=== PATIENT | male | born 1990 | race Caucasian/White ===

== ENCOUNTER 2017-05-14 05:30 | Emergency (ER) ==
[2017-05-14 05:35] VITALS: BP 124/73; TEMP 97.1; BMI 20.2
[2017-05-14] MEDS ORDERED: ZOFRAN ODT PO STA (05:55)
[2017-05-14] MEDS ORDERED: TYLENOL PO STA (05:55)
--- NOTE | 2017-05-14 05:55 | ED.PDOC ---
General ED Provider: Dr. KATELYN PEREZ Chief Complaint: Nausea/Vomiting Stated Complaint: nausea, body aches, headache took motrin but not better. Time Seen by Physician: 05:55 Mode of Arrival: Walk-In Information Source: Patient Primary Care Provider: CANDACE LEAL Nursing and Triage Documentation Reviewed and Agree: Yes GI Complaint Exam - Vomiting/Diarrhea Complaint/Exam Onset/Duration: 1 day Symptoms Are: Still present Episodes of Vomiting over last 24 Hours: 0 Episodes of Diarrhea Over Last 24 Hours: 5 Initial Severity: Moderate Current Severity: Moderate Character of Diarrhea: Reports: Watery Aggravating: Reports: None Alleviating: Reports: None Associated Signs and Symptoms: Denies: Dizziness, Light-headedness, Melena, Hematemesis, Fever, Abdominal pain, Cramping Surgical Obstruction Risk Factors: Reports: None Related Surgical History: Reports: None Abdominal Findings: Present: None Differential Diagnoses: Viral Gastroenteritis Review of Systems - Review Of Systems Constitutional: Reports: No symptoms Eyes: Reports: No symptoms Ears, Nose, Mouth, Throat: Reports: No symptoms Respiratory: Reports: No symptoms Cardiac: Reports: No symptoms GI: Reports: Diarrhea, Nausea. Denies: Vomiting : Reports: No symptoms Musculoskeletal: Reports: No symptoms Skin: Reports: No symptoms Neurological: Reports: Anxiety Endocrine: Reports: No symptoms Hematologic/Lymphatic: Reports: No symptoms All Other Systems: Reviewed and Negative Past Medical History - Past Medical History Previously Healthy: Yes Endocrine: Reports: None Cardiovascular: Reports: None Respiratory: Reports: None Hematological: Reports: None Gastrointestinal: Reports: None Genitourinary: Reports: None Neuro/Psych: Reports: None Musculoskeletal: Reports: None Cancer: Reports: None - Surgical History General Surgical History: Reports: Unknown - Family History Family History: Reports: Unknown - Social History Smoking Status: Current every day smoker, Heavy tobacco smoker Hx Substance Use: No Alcohol Screening: None - Immunizations Tetanus Shot up to Date: No (unknown) Physical Exam - Physical Exam Appearance: Ill-appearing Ill-appearing: Mild Eyes: DARCY, EOMI, Conjunctiva clear Neck: Supple Respiratory: Airway patent Cardiovascular: RRR GI/: Soft, Nontender Musculoskeletal: Normal strength Skin: Warm, Dry Neurological: Sensation intact Psychiatric: Anxious Critical Care Note - Critical Care Note Total Time (mins): 0 Course - Course Orders, Labs, Meds: Lab Review 05/14/17 06:00 Influenza A (Rapid) Negative Influenza B (Rapid) Negative Orders Category Date Time Status MOLECULAR GROUP A STREP Stat LAB 05/14/17 06:00 Completed RAPID FLU A/B Stat LAB 05/14/17 06:00 Completed STREP SCREEN Stat LAB 05/14/17 06:00 Completed Acetaminophen [Tylenol] MEDS 05/14/17 05:55 Discontinued 1,000 mg PO ONCE STA Ondansetron [Zofran Odt] MEDS 05/14/17 05:55 Discontinued 4 mg PO ONCE STA Medications Discontinued Medications Generic Name Dose Route Start Last Admin Trade Name Freq PRN Reason Stop Dose Admin Acetaminophen 1,000 mg 05/14/17 05:55 05/14/17 06:05 Tylenol PO 05/14/17 05:56 1,000 mg ONCE STA Administration Ondansetron HCl 4 mg 05/14/17 05:55 05/14/17 06:06 Zofran Odt PO 05/14/17 05:56 4 mg ONCE STA Administration Vital Signs: Temp Pulse Resp BP Pulse Ox 05/14/17 05:31 97.1 F L 75 20 124/73 98 Departure - Departure Time of Disposition: 06:30 Disposition: HOME SELF-CARE Discharge Problem: Viral syndrome Instructions: Viral Syndrome (ED) Condition: Fair Pt referred to PMD for follow-up: Yes Additional Instructions: Push fluids Take Tylenol Alternating with motrin as needed for fever or pain Follow up with PCP in 3 days Prescriptions: Ondansetron HCl [Zofran Tab] 4 mg PO Q8H PRN #14 tablet PRN Reason: Nausea / Vomiting Allergies/Adverse Reactions: Allergies No Known Allergies Allergy (Verified 05/14/17 05:36) Home Medications: Ambulatory Orders Albuterol Sulfate [Albuterol Sulfate Hfa] 8.5 gm IH BID PRN 05/27/13 Ondansetron HCl [Zofran Tab] 4 mg PO Q8H PRN #14 tablet 05/14/17 Disposition Discussed With: Patient
[2017-05-14 06:18] LABS: FLU INTERNAL QC INTERNAL QC VALID; RAPID FLU A NEGATIVE (NEGATIVE); RAPID FLU B NEGATIVE (NEGATIVE)
== END 2017-05-14 06:31 | disposition home or self-care (01) ==
LOC: ED 05:30
DX: B34.9 Viral infection, unspecified (principal)
CPT/HCPCS: 87651; 87804; 87880; 99282

== ENCOUNTER 2017-06-04 14:38 | Outpatient (CLI) | END 2017-06-04 14:39 | disposition home or self-care (01) | LOC: CAR 14:38 | PROVIDERS: ATTEND Physician Assistant | DX: I49.9 Cardiac arrhythmia, unspecified (principal) | CPT/HCPCS: 93005; 93010 ==

== ENCOUNTER 2017-06-05 08:56 | Outpatient (CLI) ==
[2017-06-05 09:24] LABS: BASOPHILS % (AUTO) 0.7 % (0.0-3.0); EOSINOPHILS # (AUTO) 0.3 K/ul (0.0-0.7); EOSINOPHILS % (AUTO) 4.7 % (0.0-7.0); HEMATOCRIT 42.9 % (42.0-52.0); HEMOGLOBIN 14.3 g/dl (14.0-18.0); IMMATURE GRANULOCYTE % (AUTO) 0.4 % (0.0-5.0); LYMPHOCYTES # (AUTO) 2.1 K/uL (0.60-3.4); LYMPHOCYTES % (AUTO) 37.2 (10.0-50.0); MEAN CORPUSCULAR HEMOGLOBIN 31.3 pg (27.0-31.0); MEAN CORPUSCULAR HGB CONC 33.3 (31.8-35.4); MEAN CORPUSCULAR VOLUME 93.9 fl (80.0-94.0); MONOCYTES # (AUTO) 0.4 K/uL (0.4-2.0); MONOCYTES % (AUTO) 6.4 (0-10); NEUTROPHILS # (AUTO) 2.8 K/ul (2.0-6.9); NEUTROPHILS % (AUTO) 50.6; PLATELET COUNT 303 10^3/uL (140-440); RED BLOOD COUNT 4.57 10^6/ul (4.70-6.10); WHITE BLOOD COUNT 5.51 K/ul (4.2-10.2)
[2017-06-05 09:42] LABS: ALBUMIN 3.8 g/dL (3.4-5.0); ALBUMIN/GLOBULIN RATIO 0.93; ANION GAP 9.5; BILIRUBIN,TOTAL 0.4 mg/dL (0.00-1.20); BUN/CREATININE RATIO 19.79; CHOL/HDL RATIO 3.6 (4.5-6.4); CREATININE 0.96 mg/dL (0.60-1.10); POTASSIUM 4.5 mmol/L (3.5-5.1); TOTAL PROTEIN 7.9 g/dL (6.4-8.2)
== END 2017-06-05 08:57 | disposition home or self-care (01) ==
LOC: LAB 08:56
PROVIDERS: ATTEND Physician Assistant
DX: I49.9 Cardiac arrhythmia, unspecified (principal)
CPT/HCPCS: 36415; 80053; 80061; 84436; 84443; 84479; 85025

== ENCOUNTER 2017-07-23 08:28 | Emergency (ER) ==
[2017-07-23 08:29] VITALS: BMI 20.2
[2017-07-23 08:36] VITALS: BP 126/83; TEMP 98
--- NOTE | 2017-07-23 09:58 | DI ---
Exam: Two x-rays of the chest. Comparison: 05/25/2014. Reason for exam: Chest pain. FINDINGS: No pneumothorax, pleural effusion, or focal consolidation. The cardiac silhouette is not enlarged. The imaged osseous structures appear grossly unremarkable without acute fracture. Impression: No acute cardiopulmonary process.
--- NOTE | 2017-07-23 11:17 | ED.PDOC ---
General ED Provider: Dr. ALEXANDRA BERNABE Chief Complaint: Chest Pain Stated Complaint: chest pain Time Seen by Physician: 08:37 (chest pain at rest developed shortly prior to arrival) Mode of Arrival: Walk-In Information Source: Patient Exam Limitations: No limitations Primary Care Provider: CANDACE LEAL Nursing and Triage Documentation Reviewed and Agree: Yes Reviewed sepsis parameters & appropriate labs ordered?: Yes System Inflammatory Response Syndrome: Not Applicable Sepsis Protocol: For patient's 13 years and over: Temp is 96.8 and below OR 101 and greater Pulse >90 BPM Resp >20/minute Acutely Altered Mental Status Are patient's symptoms suggestive of a new infection, such as: -Pneumonia -Skin, Soft Tissue -Endocarditis -UTI -Bone, Joint Infection -Implantable Device -Acute Abdominal Infection -Wound Infection -Meningitis -Blood Stream Catheter Infection -Unknown System Inflammatory Response Syndrome: Not Applicable Review of Systems - Review Of Systems Constitutional: Reports: No symptoms Eyes: Reports: No symptoms Ears, Nose, Mouth, Throat: Reports: No symptoms Respiratory: Reports: No symptoms Cardiac: Reports: Chest pain GI: Reports: No symptoms : Reports: No symptoms Musculoskeletal: Reports: No symptoms Skin: Reports: No symptoms Neurological: Reports: No symptoms Endocrine: Reports: No symptoms Hematologic/Lymphatic: Reports: No symptoms All Other Systems: Reviewed and Negative Past Medical History - Past Medical History Previously Healthy: Yes Endocrine: Reports: None Cardiovascular: Reports: Other (svt) Respiratory: Reports: None Hematological: Reports: None Gastrointestinal: Reports: None Genitourinary: Reports: None Neuro/Psych: Reports: None Musculoskeletal: Reports: None Cancer: Reports: None - Surgical History General Surgical History: Reports: Unknown - Family History Family History: Reports: Unknown - Social History Smoking Status: Current every day smoker, Heavy tobacco smoker Hx Substance Use: No Alcohol Screening: None Physical Exam - Physical Exam Appearance: Well-appearing, No pain distress, Well-nourished Eyes: DARCY, EOMI, Conjunctiva clear ENT: Ears normal, Nose normal, Oropharynx normal Respiratory: Airway patent, Breath sounds clear, Breath sounds equal, Respirations nonlabored Cardiovascular: RRR, Pulses normal, No rub, No murmur GI/: Soft, Nontender, No masses, Bowel sounds normal, No Organomegaly Musculoskeletal: Normal strength, ROM intact, No edema, No calf tenderness Skin: Warm, Dry, Normal color Neurological: Sensation intact, Motor intact, Reflexes intact, Cranial nerves intact, Alert, Oriented Psychiatric: Affect appropriate, Mood appropriate Interpretation - Radiology Interpretation Radiology Interpretation By: Radiologist Radiology Results: No acute changes - Embedded Linux Engineer Rate: Normal Rhythm: Sinus Ectopy: None - EKG Interpretation Rate: Normal Rhythm: Sinus Ectopy: None [place]: NL ST Segment: Normal Physician Notification - Case Discussed Physician Notified: lily COY Time of Notification: 12:08 (MAY GO HOME EKG IS CONSISTENT WITH REPOLRIZATION SAID PMD ) Critical Care Note - Critical Care Note Total Time (mins): 0 Course - Course Hematology/Chemistry: 07/23/17 09:30 07/23/17 09:30 Orders, Labs, Meds: Lab Review 07/23/17 07/23/17 07/23/17 09:30 09:30 09:35 WBC 6.21 RBC 4.27 L Hgb 13.2 L Hct 39.7 L MCV 93.0 MCH 30.9 MCHC 33.2 RDW Coeff of Kiah 13.2 Plt Count 207 Immature Gran % (Auto) 0.3 Neut % (Auto) 46.9 Lymph % (Auto) 39.6 [place] % (Auto) 6.4 Eos % (Auto) 6.0 Baso % (Auto) 0.8 Immature Gran # (Auto) 0.0 Neut # 2.9 Lymph # 2.5 [place]y # 0.4 Eos # 0.4 Baso # 0.1 Sodium 140 Potassium 4.4 Chloride 105 Carbon Dioxide 30 Anion Gap 9.4 BUN 16 Creatinine 0.96 Estimated GFR (MDRD) 96.00 BUN/Creatinine Ratio 16.66 Glucose 102 H Calcium 9.8 Total Bilirubin < 0.3 AST 17 ALT 15 Alkaline Phosphatase 60 Total Creatine Kinase 92 Troponin I < 0.0100 Total Protein 7.1 Albumin 4.0 Globulin 3.1 Albumin/Globulin Ratio 1.29 Urine Opiates Screen Negative Ur Oxycodone Screen Negative Urine Methadone Screen Negative Ur Propoxyphene Screen Negative Ur Barbiturates Screen Negative U Tricyclic Antidepress Negative Ur Phencyclidine Scrn Negative Ur Amphetamine Screen Negative U Methamphetamines Scrn Negative U Benzodiazepines Scrn Negative Urine Cocaine Screen Negative U Cannabinoids Screen Positive Orders Category Date Time Status EKG-(ED ONLY) Stat CARDIO 07/23/17 08:58 Completed CBC W/ AUTO DIFF Stat LAB 07/23/17 09:30 Completed COMPREHENSIVE METABOLIC PANEL Stat LAB 07/23/17 09:30 Completed CREATINE KINASE Stat LAB 07/23/17 09:30 Completed TROPONIN I Stat LAB 07/23/17 09:30 Completed URINE DRUG SCREEN (RAPID FOR ED) [DRUG SCREEN, URINE, LAB 07/23/17 09:35 Completed RAPID] Stat CHEST, 2 VIEWS PA & LAT Stat RADS 07/23/17 09:16 Completed Vital Signs: Temp Pulse Resp BP Pulse Ox 07/23/17 08:31 98 F 74 16 126/83 98 MARILYN Risk Score MARILYN Risk Score: Risk Score Odds of by 30D 0 0.1 (0.1-0.2) 1 0.3 (0.2-0.3) 2 0.4 (0.3-0.5) 3 0.7 (0.6-0.9) 4 1.2 (1.0-1.5) 5 2.2 (1.9-2.6) 6 3.0 (2.5-3.6) 7 4.8 (3.8-6.1) Departure - Departure Time of Disposition: 12:09 Disposition: HOME SELF-CARE Discharge Problem: Chest pain Instructions: Chest Pain (ED) Condition: Good Pt referred to PMD for follow-up: Yes (DR Caballero contacted he is in a procedure will call back) IPMP verified?: No Additional Instructions: Please call your Family Physician as soon as possible to schedule a follow-up appointment. Allergies/Adverse Reactions: Allergies No Known Allergies Allergy (Verified 07/23/17 08:30) Home Medications: Ambulatory Orders Albuterol Sulfate [Albuterol Sulfate Hfa] 8.5 gm IH BID PRN 05/27/13 Disposition Discussed With: Patient
== END 2017-07-23 12:25 | disposition home or self-care (01) ==
LOC: ED 08:28
DX: R07.9 Chest pain, unspecified (principal); F17.210 Nicotine dependence, cigarettes, uncomplicated
CPT/HCPCS: 36415; 80053; 80306; 82550; 84484; 85025; 93005; 93010; 99284

== ENCOUNTER 2017-10-15 13:05 | Emergency (ER) ==
[2017-10-15 13:13] VITALS: BP 117/73; TEMP 98; BMI 19.5
--- NOTE | 2017-10-15 14:07 | DI ---
EXAM: Five views of the lumbar spine HISTORY: Pain post fall. COMPARISON: 05/25/2014 x-rays FINDINGS: Vertebral bodies demonstrate no acute compression fracture or subluxation. There is no lyt ic or blastic lesion. The facets and posterior processes are normal. The lumbosacral junction is in tact. The soft tissues are normal. IMPRESSION: No acute abnormality of the lumbosacral spine.
--- NOTE | 2017-10-15 14:07 | DI ---
EXAM: Radiographs, sacrum and coccyx HISTORY: Sacrococcygeal pain. COMPARISON: None available. TECHNIQUE: Three views. FINDINGS/IMPRESSION: No fracture or dislocation identified.
--- NOTE | 2017-10-15 14:59 | ED.PDOC ---
General ED Provider: Dr. ALEXANDRA BERNABE Chief Complaint: Fall Stated Complaint: low back pain Time Seen by Physician: 13:00 Mode of Arrival: Walk-In Information Source: Patient Exam Limitations: No limitations Primary Care Provider: CANDACE LEAL Nursing and Triage Documentation Reviewed and Agree: Yes Reviewed sepsis parameters & appropriate labs ordered?: Yes (fall standing postion no neck or upper back pain) System Inflammatory Response Syndrome: Not Applicable Sepsis Protocol: For patient's 13 years and over: Temp is 96.8 and below OR 101 and greater Pulse >90 BPM Resp >20/minute Acutely Altered Mental Status Are patient's symptoms suggestive of a new infection, such as: -Pneumonia -Skin, Soft Tissue -Endocarditis -UTI -Bone, Joint Infection -Implantable Device -Acute Abdominal Infection -Wound Infection -Meningitis -Blood Stream Catheter Infection -Unknown System Inflammatory Response Syndrome: Not Applicable Trauma/Injury Complaint Exam - Trauma Complaint/Exam Location of Pain or Injury: Reports: Back. Denies: Head, Scalp, Face, Neck, RUE , LUE, Chest, Abdomen, RLE, LLE Mechanism of Injury: Reports: Fall Onset/Duration: this morning Symptoms Are: Still present Timing of Treatment: Immediate Initial Severity: Mild Current Severity: Mild Character: Reports: Aching Aggravating: Reports: None Alleviating: Reports: None Associated Signs and Symptoms: Denies: LOC, Confusion, Memory loss, Lethargy, Vomiting, Bleeding, Bruising, Swelling, Extremity disuse, Painful respiration, Hoarseness, Dysphagia, Hemoptysis, Significant blood loss Related History: Reports: Similar episode Penetrating Injury Risk Factors: Reports: None Nexus Low Risk Criteria: No post-midline CS tender, No evidence of intoxicat., No Altered LOC, No focal neuro deficit, No distracting injuries Immobilization Removed Post Exam: No Glascow Coma Scale (see protocol): 15 Compartment Syndrome Risk Factors: Present: Pain Trauma Findings: Absent: [place] eyes, Hemotympanum, Nasal deformity, Dental tenderness, Dental injury, Dental malocclusion, Neck tenderness, Neck spasm, SubQ Air, Crepitus, Airway obstructed, Trachea displaced, Labored respirations, Decreased breath sounds, Muffled heart sounds, Weak pulses, Absent pulses, Abdominal distention, Pelvic tenderness, Pelvic instability Review of Systems - Review Of Systems Constitutional: Reports: No symptoms Eyes: Reports: No symptoms Ears, Nose, Mouth, Throat: Reports: No symptoms Respiratory: Reports: No symptoms Cardiac: Reports: No symptoms GI: Reports: No symptoms : Reports: No symptoms Musculoskeletal: Reports: Back pain Skin: Reports: No symptoms Neurological: Reports: No symptoms Endocrine: Reports: No symptoms Hematologic/Lymphatic: Reports: No symptoms All Other Systems: Reviewed and Negative Past Medical History - Past Medical History Previously Healthy: Yes Endocrine: Reports: None Cardiovascular: Reports: Other (svt) Respiratory: Reports: None Hematological: Reports: None Gastrointestinal: Reports: None Genitourinary: Reports: None Neuro/Psych: Reports: None Musculoskeletal: Reports: None Cancer: Reports: None - Surgical History General Surgical History: Reports: Unknown - Family History Family History: Reports: Unknown - Social History Smoking Status: Current some day smoker, Heavy tobacco smoker Hx Substance Use: No Alcohol Screening: None - Immunizations Tetanus Shot up to Date: No Physical Exam - Physical Exam Appearance: Well-appearing, No pain distress, Well-nourished Eyes: DARCY, EOMI, Conjunctiva clear ENT: Ears normal, Nose normal, Oropharynx normal Respiratory: Airway patent, Breath sounds clear, Breath sounds equal, Respirations nonlabored Cardiovascular: RRR, Pulses normal, No rub, No murmur GI/: Soft, Nontender, No masses, Bowel sounds normal, No Organomegaly Musculoskeletal: Normal strength, ROM intact, No edema, No calf tenderness Skin: Warm, Dry, Normal color Neurological: Sensation intact, Motor intact, Reflexes intact, Cranial nerves intact, Alert, Oriented Psychiatric: Affect appropriate, Mood appropriate Critical Care Note - Critical Care Note Total Time (mins): 0 Course - Course Orders, Labs, Meds: Orders Category Date Time Status LUMBAR SPINE, MIN 4 VIEWS Stat RADS 10/15/17 13:38 Completed SACRUM & COCCYX Stat RADS 10/15/17 13:38 Completed Vital Signs: Temp Pulse Resp BP Pulse Ox 10/15/17 13:09 98.0 F 72 16 117/73 98 Departure - Departure Time of Disposition: 14:59 Disposition: HOME SELF-CARE Discharge Problem: Back pain Qualifiers: Back pain location: low back pain Chronicity: unspecified Back pain laterality : midline Sciatica presence: without sciatica Qualified Code(s): M54.5 - Low back pain Instructions: Back Pain (ED), Acute Low Back Pain (ED) Condition: Good Pt referred to PMD for follow-up: Yes IPMP verified?: No Additional Instructions: Please call your Family Physician as soon as possible to schedule a follow-up appointment. Allergies/Adverse Reactions: Allergies No Known Allergies Allergy (Verified 10/15/17 13:09) Home Medications: Ambulatory Orders Albuterol Sulfate [Albuterol Sulfate Hfa] 8.5 gm IH BID PRN 05/27/13
== END 2017-10-15 15:04 | disposition home or self-care (01) ==
LOC: ED 13:05
DX: M54.5 Low back pain (principal); W19.XXXA Unspecified fall, initial encounter; F17.210 Nicotine dependence, cigarettes, uncomplicated
CPT/HCPCS: 99283

== ENCOUNTER 2017-12-20 09:07 | Emergency (ER) ==
[2017-12-20 09:13] VITALS: BP 136/75; TEMP 97.3; BMI 19.8
--- NOTE | 2017-12-20 09:55 | ED.PDOC ---
General ED Provider: Dr. LINDA KRAUSE Chief Complaint: Penile Problem Stated Complaint: CC:Warts on Penis. 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 Time Seen by Physician: 09:30 Mode of Arrival: Walk-In Information Source: Patient Exam Limitations: No limitations Primary Care Provider: CANDACE LEAL Nursing and Triage Documentation Reviewed and Agree: Yes Does patient meet sepsis criteria?: No System Inflammatory Response Syndrome: Not Applicable Sepsis Protocol: For patient's 13 years and over: Temp is 96.8 and below OR 101 and greater Pulse >90 BPM Resp >20/minute Acutely Altered Mental Status Are patient's symptoms suggestive of a new infection, such as: -Pneumonia -Skin, Soft Tissue -Endocarditis -UTI -Bone, Joint Infection -Implantable Device -Acute Abdominal Infection -Wound Infection -Meningitis -Blood Stream Catheter Infection -Unknown Complaint Exam - STD Male Complaint/Exam Onset/Duration: several years Symptoms Are: Still present Timing: Constant Initial Severity: Moderate Current Severity: Moderate Location: Reports: Penis Aggravating: Reports: None Alleviating: Reports: None Associated Signs and Symptoms: Denies: Dysuria, Penile sores, Scrotal pain, Scrotal swelling, Testicular pain, Testicular swelling Related History: Reports: Similar episode Related Surgical History: Reports: None Genitalia Exam: Present: Penile lesions (3 lesions) Differential Diagnoses: Other (condyloma warts) Review of Systems - Review Of Systems Constitutional: Reports: No symptoms Eyes: Reports: No symptoms Ears, Nose, Mouth, Throat: Reports: No symptoms Respiratory: Reports: No symptoms Cardiac: Reports: No symptoms GI: Reports: No symptoms : Reports: No symptoms Musculoskeletal: Reports: No symptoms Skin: Reports: No symptoms Neurological: Reports: No symptoms Endocrine: Reports: No symptoms Hematologic/Lymphatic: Reports: No symptoms All Other Systems: Reviewed and Negative Past Medical History - Past Medical History Previously Healthy: Yes Endocrine: Reports: None Cardiovascular: Reports: Other (svt) Respiratory: Reports: None Hematological: Reports: None Gastrointestinal: Reports: None Genitourinary: Reports: None Neuro/Psych: Reports: None Musculoskeletal: Reports: None Cancer: Reports: None - Surgical History General Surgical History: Reports: Unknown - Family History Family History: Reports: Unknown - Social History Smoking Status: Current every day smoker, Heavy tobacco smoker Hx Substance Use: No Alcohol Screening: None Physical Exam - Physical Exam Appearance: Well-appearing (penile warts X 3 shaft), No pain distress, Well- nourished Eyes: DARCY, EOMI, Conjunctiva clear ENT: Ears normal, Nose normal, Oropharynx normal Respiratory: Airway patent, Breath sounds clear, Breath sounds equal, Respirations nonlabored Cardiovascular: RRR, Pulses normal, No rub, No murmur GI/: Soft, Nontender, No masses, Bowel sounds normal, No Organomegaly Musculoskeletal: Normal strength, ROM intact, No edema, No calf tenderness Skin: Warm, Dry, Normal color Neurological: Sensation intact, Motor intact, Reflexes intact, Cranial nerves intact, Alert, Oriented Psychiatric: Affect appropriate, Mood appropriate Critical Care Note - Critical Care Note Total Time (mins): 0 Course - Course Vital Signs: Temp Pulse Resp BP Pulse Ox 12/20/17 09:07 97.3 F L 59 L 16 136/75 98 Departure - Departure Time of Disposition: 10:10 Disposition: HOME SELF-CARE Discharge Problem: Condyloma acuminatum of penis Instructions: Genital Warts (ED) Condition: Good Pt referred to PMD for follow-up: Yes (PCP) IPMP verified?: No Prescriptions: Imiquimod [Aldara] 1 each TP DAILY LAB 5 Days #1 cream.pack Imiquimod [Aldara] 1 each TP DAILY 5 Days #1 cream.pack Allergies/Adverse Reactions: Allergies No Known Allergies Allergy (Verified 12/20/17 09:14) Home Medications: Ambulatory Orders Albuterol Sulfate [Albuterol Sulfate Hfa] 8.5 gm IH BID PRN 05/27/13 Imiquimod [Aldara] 1 each TP DAILY 5 Days #1 cream.pack 12/20/17 Imiquimod [Aldara] 1 each TP DAILY LAB 5 Days #1 cream.pack 12/20/17 Disposition Discussed With: Patient, Family
== END 2017-12-20 10:24 | disposition home or self-care (01) ==
LOC: ED 09:07
DX: A63.0 Anogenital (venereal) warts (principal); F17.210 Nicotine dependence, cigarettes, uncomplicated
CPT/HCPCS: 99282